=== PATIENT | male | born 1940 | race Caucasian/White ===

== ENCOUNTER 2022-12-19 15:49 | Inpatient (IN) | payer MEDICARE, OTHER ==
[~2022-12-19] VITALS: Ht 175.3 cm; Wt 57.2 kg
[2022-12-19 16:50] LABS: BASOPHILS % (AUTO) 0.3 % (0.0-2.0); EOSINOPHILS # (AUTO) 0.1 K/uL (0.0-0.7); HEMATOCRIT 44 % (39-51); HEMOGLOBIN 13.8 g/dL (13.5-17.5); LYMPHOCYTES # (AUTO) 2.8 K/uL (0.8-4.8); LYMPHOCYTES % (AUTO) 26.6 % (20.0-44.0); MEAN CORPUSCULAR HEMOGLOBIN 25 PG (26.0-33.0); MEAN CORPUSCULAR HGB CONC 31 g/dl (31.0-36.0); MEAN CORPUSCULAR VOLUME 80 fL (80-96); MONOCYTES # (AUTO) 1.1 K/uL (0.1-1.30); MONOCYTES % (AUTO) 10.9 % (2.0-12.0); NEUTROPHILS # (AUTO) 6.4 K/uL (1.8-8.9); NEUTROPHILS % (AUTO) 61.2 % (43.0-81.0); PLATELET COUNT (AUTO) 186 K/uL (150-450); RED BLOOD CELL COUNT(AUTO) 5.54 MIL/uL (4.5-6.0); RED CELL DISTRIBUTION WIDTH 15.7 % (11.5-15.0); WHITE BLOOD COUNT (AUTO) 10.4 K/uL (4.3-11.0)
[2022-12-19] MEDS ORDERED: MEMA10TA PO (16:51)
[2022-12-19] MEDS ORDERED: LEVE100023 PO (16:51)
[2022-12-19] MEDS ORDERED: TIOT18CA3 IH (16:51)
[2022-12-19] MEDS ORDERED: RISP1TAB7 PO (16:51)
[2022-12-19] MEDS ORDERED: MULT-594 PO (16:51)
[2022-12-19] MEDS ORDERED: ACET-868 PO (16:51)
[2022-12-19] MEDS ORDERED: LORA-258 PO (16:51)
[2022-12-19] MEDS ORDERED: METO25TA6 PO (16:51)
[2022-12-19] MEDS ORDERED: DOCU100T2 PO (16:51)
[2022-12-19] MEDS ORDERED: MAGN400O6 PO (16:51)
[2022-12-19] MEDS ORDERED: BISA10SU11 RC (16:51)
[2022-12-19] MEDS ORDERED: FOLI0.8T3 PO (16:51)
[2022-12-19] MEDS ORDERED: SENN-261 PO (16:51)
[2022-12-19] MEDS ORDERED: PANT40TA49 PO (16:51)
[2022-12-19] MEDS ORDERED: PHEN100C12 PO (16:51)
[2022-12-19] MEDS ORDERED: NA P133E RC (16:51)
[2022-12-19 17:10] LABS: CALCIUM, SERUM 9.3 mg/dL (8.5-10.1); CARBON DIOXIDE 24 mmol/L (21-32); CHLORIDE 106 mmol/L (98-107); CREATININE 1.3 mg/dL (0.6-1.3); GLUCOSE 109 mg/dL (74-106); POTASSIUM 4.3 mmol/L (3.5-5.1); SODIUM SERUM 141 mmol/L (136-145); UREA NITROGEN, BLOOD 28 mg/dL (7-18)
[2022-12-19 17:15] LABS: ALANINE AMINOTRANSFERASE 18 U/L (12-78); ALBUMIN 2.9 g/dL (3.4-5.0); ALKALINE PHOSPHATASE 94 U/L (46-116); ASPARTATE AMINOTRANSFERASE 17 U/L (15-37); BILIRUBIN,DIRECT 0.1 mg/dL (0.0-0.2); BILIRUBIN,TOTAL 0.3 mg/dL (0.2-1.0); LIPASE 41 U/L (16-77); TOTAL PROTEIN, SERUM 7.1 g/dL (6.4-8.2)
[2022-12-19] MEDS ORDERED: Z GUARD REMEDY 4 OZ OINT TP PRN (18:00)
[2022-12-19] MEDS ORDERED: ACETAMINOPHEN 325 MG TABLET PO PRN (18:00)
[2022-12-19] MEDS ORDERED: ONDANSETRON HCL/PF 4 MG/2 ML VIAL IVP PRN (18:00)
[2022-12-19] MEDS ORDERED: MAGNESIUM HYDROXIDE 30 ML UDC PO PRN ×2 (18:00→19:30)
[2022-12-19] MEDS ORDERED: ZOLPIDEM TARTRATE 5 MG TABLET PO PRN (18:00)
[2022-12-19] MEDS ORDERED: MAG HYDROX/AL HYDROX/SIMETH 30 ML UDC PO PRN (18:00)
[2022-12-19 19:24] LABS: APPEARANCE,URINE CLOUDY (CLEAR); BILIRUBIN,URINE NEGATIVE (NEGATIVE); BLOOD, URINE 3+ Ery/uL (NEGATIVE); COLOR,URINE YELLOW (YELLOW); KETONES,URINE NEGATIVE (NEGATIVE); LEUKOCYTE ESTERASE ,URINE 2+ (NEGATIVE); NITRITE, URINE NEGATIVE (NEGATIVE); PH,URINE 5.5 (5.0-8.0); PROTEIN,URINE 1+ mg/dl (NEGATIVE); UGLUCOSE NEGATIVE (NEGATIVE); UROBILINOGEN,URINE 0.2 EU/dL (0.2)
[2022-12-19 19:30] LABS: ADD URINE CULTURE YES; BACTERIA,URINE 3+ /HPF (None Seen); RBC,URINE 51-80 /HPF (0-2); SQUAMOUS EPITHELIAL CELL,UR 0-2 /HPF (None Seen); WBC,URINE 21-50 /HPF (0-3)
[2022-12-19] MEDS ORDERED: NA PHOS,M-B/NA PHOS,DI-BA 1 EA ENEMA RC PRN (19:30)
[2022-12-19] MEDS ORDERED: INSULIN REGULAR, HUMAN 100 UNIT/ML 3 ML VIAL SQ PRN (19:30)
[2022-12-19] MEDS ORDERED: *INSULIN REGULAR(HUMULIN R)HUM 100 UNIT/ML VIAL SQ PRN (19:30)
[2022-12-19] MEDS ORDERED: BISACODYL SUPP (10 MG) 10 MG/SUPP.RECT SUPP.RECT RC PRN (19:30)
[2022-12-19] MEDS ORDERED: DEXTROSE 50%-WATER 50 ML DISP.SYRIN IV PRN (19:30)
[2022-12-19 21:00] VITALS: BP 152/58; TEMP 97.6; O2SAT 100
[2022-12-19] MEDS ORDERED: LEVETIRACETAM SOL (5 ML) 100 MG/ML UDC PO SCH (21:00)
[2022-12-19] MEDS: METOPROLOL TARTRATE 25 MG TABLET PO SCH (21:00)
[2022-12-19] MEDS: ENOXAPARIN SODIUM 40 MG/0.4 ML DISP.SYRIN SQ SCH (21:00)
[2022-12-19] MEDS ORDERED: CEFTRIAXONE 1GM BAG (ER ONLY) 1 GM/50 ML PIGGYBACK IV ONE (21:00)
[2022-12-19] MEDS: risperiDONE 1 MG TABLET PO SCH (22:00)
[2022-12-19] MEDS: BLOOD SUGAR DIAGNOSTIC 1 EACH STRIP VI SCH (22:00)
[2022-12-19] MEDS: SENNOSIDES 8.6 MG TABLET PO SCH (22:00)
[2022-12-19] MEDS: HALOPERIDOL LACTATE INJ 5 MG/ML VIAL IM PRN (22:32)
[2022-12-20] MEDS: BLOOD SUGAR DIAGNOSTIC 1 EACH STRIP VI SCH ×4 (07:30→22:00)
[2022-12-20] MEDS: PANTOPRAZOLE 40 MG TABLET.DR PO SCH (07:30)
[2022-12-20] MEDS ORDERED: PANTOPRAZOLE 40 MG TABLET.DR PO SCH (07:30)
[2022-12-20] MEDS: LORAZEPAM 0.5 MG TABLET PO SCH (08:14)
[2022-12-20] MEDS: DOCUSATE SODIUM 100 MG CAPSULE PO SCH (08:15)
[2022-12-20] MEDS: FOLIC ACID 1 MG TABLET PO SCH (08:15)
[2022-12-20] MEDS: PHENYTOIN EXTENDED RELEASE 100 MG CAPSULE PO SCH ×3 (08:15→16:40)
[2022-12-20] MEDS: LEVETIRACETAM (250 MG) 250 MG TABLET PO SCH ×2 (08:16→21:00)
[2022-12-20] MEDS: METOPROLOL TARTRATE 25 MG TABLET PO SCH ×2 (08:16→21:00)
[2022-12-20] MEDS: MULTIVITAMINS,THERAGRAN 1 UDTAB TABLET PO SCH (08:17)
[2022-12-20] MEDS: MEMANTINE HCL 5 MG TABLET PO SCH (08:17)
[2022-12-20 15:28] LABS: BASOPHILS # (AUTO) 0.1 K/uL (0.0-0.2); BASOPHILS % (AUTO) 0.4 % (0.0-2.0); EOSINOPHILS # (AUTO) 0.1 K/uL (0.0-0.7); EOSINOPHILS % (AUTO) 0.7 % (0.0-6.0); HEMATOCRIT 49 % (39-51); HEMOGLOBIN 15.5 g/dL (13.5-17.5); LYMPHOCYTES # (AUTO) 3.2 K/uL (0.8-4.8); LYMPHOCYTES % (AUTO) 21.6 % (20.0-44.0); MEAN CORPUSCULAR HEMOGLOBIN 25 PG (26.0-33.0); MEAN CORPUSCULAR HGB CONC 31 g/dl (31.0-36.0); MEAN CORPUSCULAR VOLUME 80 fL (80-96); MONOCYTES # (AUTO) 1.4 K/uL (0.1-1.30); MONOCYTES % (AUTO) 9.3 % (2.0-12.0); NEUTROPHILS # (AUTO) 10.1 K/uL (1.8-8.9); PLATELET COUNT (AUTO) 205 K/uL (150-450); RED BLOOD CELL COUNT(AUTO) 6.19 MIL/uL (4.5-6.0); WHITE BLOOD COUNT (AUTO) 14.9 K/uL (4.3-11.0)
[2022-12-20 15:52] LABS: CALCIUM, SERUM 9.7 mg/dL (8.5-10.1); CARBON DIOXIDE 27 mmol/L (21-32); CHLORIDE 105 mmol/L (98-107); CREATININE 1.1 mg/dL (0.6-1.3); GLUCOSE 105 mg/dL (74-106); MAGNESIUM 2.3 mg/dL (1.8-2.4); PHOSPHORUS 3.2 mg/dL (2.5-4.9); SODIUM SERUM 141 mmol/L (136-145); UREA NITROGEN, BLOOD 21 mg/dL (7-18)
[2022-12-20 15:56] LABS: THYROID STIMULATING HORMONE 1.838 uIU/mL (0.358-3.74)
[2022-12-20] MEDS: IPRATROPIUM NEB FS 0.5 MG/2.5 ML AMPUL.NEB NEB SCH (19:30)
[2022-12-20 20:00] VITALS: BP 130/73; TEMP 98.6; O2SAT 98
[2022-12-20] MEDS: ENOXAPARIN SODIUM 40 MG/0.4 ML DISP.SYRIN SQ SCH (21:00)
[2022-12-20] MEDS: SENNOSIDES 8.6 MG TABLET PO SCH (22:00)
[2022-12-20] MEDS: risperiDONE 1 MG TABLET PO SCH (22:00)
[2022-12-20] MEDS: HALOPERIDOL LACTATE INJ 5 MG/ML VIAL IM PRN (23:13)
[2022-12-21] MEDS: IPRATROPIUM NEB FS 0.5 MG/2.5 ML AMPUL.NEB NEB SCH ×4 (01:30→19:30)
[2022-12-21 04:00] VITALS: BP 126/83; TEMP 98.4; O2SAT 98
[2022-12-21] MEDS: BLOOD SUGAR DIAGNOSTIC 1 EACH STRIP VI SCH ×4 (07:24→22:00)
[2022-12-21] MEDS: PANTOPRAZOLE 40 MG TABLET.DR PO SCH (07:24)
[2022-12-21 08:00] VITALS: BP 143/92; TEMP 98.1; O2SAT 98
[2022-12-21] MEDS: FOLIC ACID 1 MG TABLET PO SCH (08:11)
[2022-12-21] MEDS: LEVETIRACETAM (250 MG) 250 MG TABLET PO SCH ×3 (08:11→21:00)
[2022-12-21] MEDS: PHENYTOIN EXTENDED RELEASE 100 MG CAPSULE PO SCH ×3 (08:11→16:50)
[2022-12-21] MEDS: DOCUSATE SODIUM 100 MG CAPSULE PO SCH (08:11)
[2022-12-21] MEDS: LORAZEPAM 0.5 MG TABLET PO SCH (08:11)
[2022-12-21] MEDS: METOPROLOL TARTRATE 25 MG TABLET PO SCH ×3 (08:12→21:00)
[2022-12-21] MEDS: MEMANTINE HCL 5 MG TABLET PO SCH (08:27)
[2022-12-21] MEDS: MULTIVITAMINS,THERAGRAN 1 UDTAB TABLET PO SCH (08:27)
[2022-12-21] MEDS: risperiDONE 1 MG TABLET PO SCH ×3 (08:27→22:00)
[2022-12-21 16:06] VITALS: BP 113/67; TEMP 98.4; O2SAT 98
[2022-12-21 20:53] VITALS: BP 140/60; TEMP 98.6; O2SAT 99
[2022-12-21] MEDS: ENOXAPARIN SODIUM 40 MG/0.4 ML DISP.SYRIN SQ SCH (21:00)
[2022-12-21] MEDS: SENNOSIDES 8.6 MG TABLET PO SCH (22:53)
[2022-12-22] MEDS: IPRATROPIUM NEB FS 0.5 MG/2.5 ML AMPUL.NEB NEB SCH ×4 (01:30→19:30)
[2022-12-22 05:34] VITALS: BP 136/52; TEMP 98; O2SAT 100
[2022-12-22] MEDS: PANTOPRAZOLE 40 MG TABLET.DR PO SCH (07:28)
[2022-12-22] MEDS: BLOOD SUGAR DIAGNOSTIC 1 EACH STRIP VI SCH ×4 (07:28→22:00)
[2022-12-22] MEDS: LORAZEPAM 0.5 MG TABLET PO SCH (08:45)
[2022-12-22] MEDS: DOCUSATE SODIUM 100 MG CAPSULE PO SCH (08:46)
[2022-12-22] MEDS: LEVETIRACETAM (250 MG) 250 MG TABLET PO SCH ×2 (08:46→21:00)
[2022-12-22] MEDS: PHENYTOIN EXTENDED RELEASE 100 MG CAPSULE PO SCH ×3 (08:46→17:00)
[2022-12-22] MEDS: METOPROLOL TARTRATE 25 MG TABLET PO SCH ×2 (08:46→21:00)
[2022-12-22] MEDS: FOLIC ACID 1 MG TABLET PO SCH (08:46)
[2022-12-22] MEDS: MULTIVITAMINS,THERAGRAN 1 UDTAB TABLET PO SCH (08:47)
[2022-12-22] MEDS: risperiDONE 1 MG TABLET PO SCH ×2 (08:47→22:00)
[2022-12-22] MEDS: MEMANTINE HCL 5 MG TABLET PO SCH (08:47)
[2022-12-22 08:56] VITALS: BP 98/62; TEMP 98.6; O2SAT 99
[2022-12-22] MEDS ORDERED: risperiDONE 0.25 MG TABLET PO SCH (11:30)
[2022-12-22] MEDS: risperiDONE 0.25 MG TABLET PO SCH ×2 (13:00→17:00)
[2022-12-22 15:16] LABS: BASOPHILS % (AUTO) 0.3 % (0.0-2.0); EOSINOPHILS # (AUTO) 0.1 K/uL (0.0-0.7); EOSINOPHILS % (AUTO) 0.6 % (0.0-6.0); HEMATOCRIT 44 % (39-51); LYMPHOCYTES # (AUTO) 1.9 K/uL (0.8-4.8); LYMPHOCYTES % (AUTO) 15.6 % (20.0-44.0); MEAN CORPUSCULAR HEMOGLOBIN 25 PG (26.0-33.0); MEAN CORPUSCULAR HGB CONC 32 g/dl (31.0-36.0); MEAN CORPUSCULAR VOLUME 79 fL (80-96); MONOCYTES # (AUTO) 1.5 K/uL (0.1-1.30); MONOCYTES % (AUTO) 12.4 % (2.0-12.0); NEUTROPHILS # (AUTO) 8.4 K/uL (1.8-8.9); NEUTROPHILS % (AUTO) 71.1 % (43.0-81.0); PLATELET COUNT (AUTO) 188 K/uL (150-450); RED BLOOD CELL COUNT(AUTO) 5.55 MIL/uL (4.5-6.0); RED CELL DISTRIBUTION WIDTH 15.6 % (11.5-15.0); WHITE BLOOD COUNT (AUTO) 11.8 K/uL (4.3-11.0)
[2022-12-22 16:00] VITALS: BP 118/74; TEMP 97.9; O2SAT 99
[2022-12-22 20:00] VITALS: BP 129/60; TEMP 98.3; O2SAT 99
[2022-12-22] MEDS: ENOXAPARIN SODIUM 40 MG/0.4 ML DISP.SYRIN SQ SCH (21:00)
[2022-12-22] MEDS: SENNOSIDES 8.6 MG TABLET PO SCH (22:00)
[2022-12-23] MEDS: IPRATROPIUM NEB FS 0.5 MG/2.5 ML AMPUL.NEB NEB SCH ×3 (01:00→12:40)
[2022-12-23] MEDS: BLOOD SUGAR DIAGNOSTIC 1 EACH STRIP VI SCH ×2 (07:29→12:00)
[2022-12-23] MEDS: PANTOPRAZOLE 40 MG TABLET.DR PO SCH (07:30)
[2022-12-23] MEDS: MEMANTINE HCL 5 MG TABLET PO SCH (09:00)
[2022-12-23] MEDS: MULTIVITAMINS,THERAGRAN 1 UDTAB TABLET PO SCH (09:00)
[2022-12-23] MEDS: FOLIC ACID 1 MG TABLET PO SCH (09:00)
[2022-12-23] MEDS: METOPROLOL TARTRATE 25 MG TABLET PO SCH (09:00)
[2022-12-23] MEDS: LORAZEPAM 0.5 MG TABLET PO SCH (09:00)
[2022-12-23] MEDS: LEVETIRACETAM (250 MG) 250 MG TABLET PO SCH (09:00)
[2022-12-23] MEDS: DOCUSATE SODIUM 100 MG CAPSULE PO SCH (09:00)
[2022-12-23] MEDS: risperiDONE 0.25 MG TABLET PO SCH ×2 (09:00→13:00)
[2022-12-23] MEDS: PHENYTOIN EXTENDED RELEASE 100 MG CAPSULE PO SCH ×2 (09:00→13:00)
[2022-12-23 11:36] VITALS: BP 116/62; TEMP 98.6
[2022-12-23 12:00] VITALS: BP 118/62; TEMP 98.2; O2SAT 99
[2022-12-23] MEDS ORDERED: CEPH250S PO (14:47)
[2022-12-24] MEDS ORDERED: GLUCERNA SHAKE 237 ML CAN PO SCH (09:00)
== END 2022-12-23 17:04 | DRG 641 ==
LOC: ER 16:48 → MEDSG1 20:35 → EDBD 20:35 → MEDSG1 21:19
PROVIDERS: ADMIT Student in an Organized Health Care Education/Training Program; ATTEND Nurse Practitioner Acute Care
DX: R62.7 Adult failure to thrive (principal); E44.0 Moderate protein-calorie malnutrition; F03.93 Unspecified dementia, unspecified severity, with mood disturbance; N39.0 Urinary tract infection, site not specified; F03.92 Unspecified dementia, unspecified severity, with psychotic disturbance; K72.90 Hepatic failure, unspecified without coma; E86.0 Dehydration; K74.60 Unspecified cirrhosis of liver; R13.10 Dysphagia, unspecified; J44.9 Chronic obstructive pulmonary disease, unspecified; G40.909 Epilepsy, unspecified, not intractable, without status epilepticus; M89.8X9 Other specified disorders of bone, unspecified site; F31.9 Bipolar disorder, unspecified; F25.9 Schizoaffective disorder, unspecified; E11.9 Type 2 diabetes mellitus without complications; Z79.51 Long term (current) use of inhaled steroids; Z79.4 Long term (current) use of insulin; Z79.899 Other long term (current) drug therapy; R79.89 Other specified abnormal findings of blood chemistry; F29 Unspecified psychosis not due to a substance or known physiological condition; E86.9 Volume depletion, unspecified; Z85.118 Personal history of other malignant neoplasm of bronchus and lung
CPT/HCPCS: 36415; 71045-TC; 80048-TC; 80076-TC; 81001; 82378; 82962-TC; 83690-TC; 83735-TC; 84100-TC; 84443-TC; 84484-TC; 85025-TC; 87086-TC; A4349; A6403; G0378; J1630; J1815; J1953